=== PATIENT | male | born 1995 | race Caucasian/White ===

== ENCOUNTER 2016-05-12 18:38 | Emergency (ER) | payer OTHER ==
[2016-05-12 19:40] VITALS: BP 112/69
--- NOTE | 2016-05-12 20:36 | PROVIDER DOCUMENTATION ---
HPI-Male Problem <Aly Rebolledo - Last Filed: 05/12/16 21:39> - General Source: patient - History of Present Illness-Male Location of Complaint: reports: scrotal Radiation: reports: none Quality of Pain: reports: aching Severity in ED: reports: mild Onset/Duration: reports: last night Timing: reports: still present Associated Symptoms: reports: pain/swelling in testicle Similar Symptoms Previously?: No Recently seen or treated by another doctor?: No <Lashaun Amaya - Last Filed: 05/12/16 21:41> <Dulce Sutton - Last Filed: 05/12/16 21:47> - General Chief Complaint: Male Stated Complaint: SWOLLEN TESTICLE Time Seen by Provider: 05/12/16 19:09 Allergies/Adverse Reactions: Patient Allergies Allergy/AdvReac Type Severity Reaction Status Date / Time amoxicillin trihydrate * Allergy Unknown Verified 05/12/16 19:40 [From Augmentin] potassium clavulanate * Allergy Unknown Verified 05/12/16 19:40 [From Augmentin] - History of Present Illness-Male Nature of Presenting Problem: 21 year old M presents to the ED with a cc of swelling and pain to right testicle with an onset of last night around 2230. Pt denies trauma. Pt states that a similar thing happened 10 years ago to left and states that he had to take a lot of antibiotics. (Lashaun Amaya) Review of Systems - Adult - REVIEW OF SYSTEMS - ADULT Constitutional: denies: chills, fever Eyes: reports: no symptoms reported Ears, Nose, Mouth & Throat: reports: no symptoms reported Cardiovascular: denies: chest pain, palpitations Respiratory: denies: cough, shortness of breath Gastrointestinal: denies: abdominal pain, nausea, vomiting Genitourinary: denies: dysuria, discharge Musculoskeletal: denies: back pain, neck pain Integumentary: reports: no symptoms reported Neurological: reports: no symptoms reported Psychiatric: reports: no symptoms reported Endocrine: reports: no symptoms reported Hematologic/Lymphatic: reports: no symptoms reported Allergic/Immunologic: reports: no symptoms reported All Other Systems: Reviewed and Negative <Lashaun Amaya - Last Filed: 05/12/16 21:41> Past History - Adult - PAST MEDICAL HISTORY-ADULT Review of Records: reports: Nursing Assessment Review, Medications Reviewed Major Childhood Illnesses: reports: denies history Other Conditions: reports: denies history - PRIOR SURGERIES/PROCEDURES Surgical/Procedure History: reports: none - IMMUNIZATION STATUS Childhood Immunizations: See Nurse Assessment Flu Vaccine: See Nurse Assessment - SOCIAL HISTORY Smoking: cigarettes, greater than 1 pack/day Provider spent 3-5 mins advising pt. on dangers of tobacco.: Discussed manners to quit use, and f/u contacts for add'l counseling. Substance Use: none/never Alcohol Use Frequency: never <Lashaun Amaya - Last Filed: 05/12/16 21:41> Physical Exam-General - GENITOURINARY Male Genitalia: normal genitalia, no hernia, circumcised. negative: epididymal tenderness, herpes-like lesion, hernia mass, hydrocele, inguinal lymphadenopathy , scrotal swelling, urethral discharge, inguinal tenderness, testicular tenderness <Aly Rebolledo - Last Filed: 05/12/16 21:39> - PHYSICAL EXAM-ADULT Initial Vital Signs Reviewed: Yes - CONSTITUTIONAL General Appearance: appears well, alert, no apparent distress - RESPIRATORY Respiratory: chest non-tender, lungs clear, normal breath sounds - CARDIOVASCULAR Cardiovascular: normal peripheral pulses, regular rate, rhythm, no edema - GASTROINTESTINAL (ABDOMEN) Abdominal Exam: normal bowel sounds, non tender, soft - GENITOURINARY Male Genitalia: normal genitalia, no hernia. negative: epididymal tenderness, scrotal swelling, urethral discharge, inguinal tenderness, testicular tenderness - SKIN Integumentary: normal color, normal turgor, warm/dry - PSYCHIATRIC Psych/Mental Status: normal mood/affect, normal thought content, normal thought process, oriented x 3 <Lashaun Amaya - Last Filed: 05/12/16 21:41> Progress <Aly Rebolledo - Last Filed: 05/12/16 21:39> - ULTRASOUND (By Radiology) 1 US Study: Scrotum Impression: Abnormal (very small hydrocele on RT. unremarkable bilateral testicles. No torsion. No other discrete abnormalities.) <Lashaun Amaya - Last Filed: 05/12/16 21:41> <Dulce Sutton - Last Filed: 05/12/16 21:47> - PLAN OF CARE/RESULTS Progress/Plan/Lab Results: plan of care: imaging, medications Orders Category Date Time Status US SCROTUM [US] Stat Exams 05/12/16 19:09 Taken Ibuprofen [Motrin] Med 05/12/16 21:38 Discontinued 800 mg PO NOW ONE Vital Signs - 24 hr 05/12/16 19:35 Temperature 98.5 F Pulse Rate 95 H Respiratory 18 Rate Blood Pressure 112/69 O2 Sat by Pulse 99 Oximetry Pt given results and will be d/c home w/ rx to follow up with PCP. Pt verbally understood instructions. PT remained clinically stable throughout the course of the ED stay and will return if symptoms worsen. (Lashaun Amaya) Departure - Departure Time of Disposition Order: 21:39 Certified Medical Emergency: Emergent <Aly Rebolledo - Last Filed: 05/12/16 21:39> <Lashaun Amaya - Last Filed: 05/12/16 21:41> <Dulce Sutton - Last Filed: 05/12/16 21:47> - Departure DIAGNOSIS: Acute hydrocele Disposition: HOME 01 Condition: Good Prescriptions: Ibuprofen [Motrin] 800 mg PO Q8H PRN PRN #30 tablet PRN Reason: Pain Referrals: None,PCP [Primary Care Provider] - Sammy Suarez, DO [STAFF PHYSICIAN] - Forms: Return to School/Parent Work Instructions: Hydrocele, Pediatric, Ibuprofen tablets and capsules, Scrotal Swelling Attestation - Scribe Verification/Attestation Scribe:: Lashaun Amaya Acting as Scribe for:: Dulce Sutton Scribe documention review:: This chart was documented by a scribe and accurately reflects the service the provider performed and the decisions made by the provider. <Lashaun Amaya - Last Filed: 05/12/16 21:41> - Physician/ Mid-level Attestation Patient care was provided by Mid-level provider (INSURANCE MANAGER/PA):: Yes Mid-level provider:: Dulce Sutton Mid-level documentation review:: The Mid-level provider documentation, treatment plan and medical decision making was reviewed by the physician who agrees with all treatment and medical decision making by the MLP. <Dulce Sutton - Last Filed: 05/12/16 21:47> Physician Attestation - Physician Attestation I, the provider, attest to the following statement:: Dulce Sutton Physician documentation Attestation:: This documentation recorded by the scribe accurately reflects the service I personally performed and the decisions made by me. <Lashaun Amaya - Last Filed: 05/12/16 21:41>
[2016-05-12] MEDS ORDERED: MOTRIN PO ONE (21:38)
--- NOTE | 2016-05-13 09:11 | Diag Imaging Result Document ---
PROCEDURE NAME: US SCROTUM - 05/12/2016 SCROTAL ULTRASOUND: INDICATION: Right testicle is swollen and tender. FINDINGS: The testicles appear normal in size and echotexture. There is bilateral symmetrical intratesticular flow. There is no evidence for testicular torsion. The epididymides appear within normal limits. There is a trace hydrocele on the right. No skin thickening is identified. Preliminary interpretation was given by the on-call radiologist. IMPRESSION: 1. Trace right hydrocele. 2. No evidence for testicular torsion.
== END 2016-05-12 21:47 | disposition home or self-care (01) ==
LOC: P.ED 18:38
DX: N43.3 Hydrocele, unspecified (principal); N50.811 Right testicular pain; N50.89 Other specified disorders of the male genital organs; F17.210 Nicotine dependence, cigarettes, uncomplicated; Z71.6 Tobacco abuse counseling
CPT/HCPCS: 76870

== ENCOUNTER 2016-05-16 04:16 | Emergency (ER) ==
[2016-05-16 04:26] VITALS: BP 140/085
--- NOTE | 2016-05-16 04:43 | PROVIDER DOCUMENTATION ---
HPI-Male Problem - General Chief Complaint: Male Stated Complaint: MALE Time Seen by Provider: 05/16/16 04:28 Source: patient Allergies/Adverse Reactions: Patient Allergies Allergy/AdvReac Type Severity Reaction Status Date / Time amoxicillin trihydrate * Allergy Unknown Verified 05/12/16 19:40 [From Augmentin] potassium clavulanate * Allergy Unknown Verified 05/12/16 19:40 [From Augmentin] - History of Present Illness-Male Nature of Presenting Problem: pt is concerned that the swelling of his left scrotum is larger than when seen in the ED on 05/12/16 which an US showed a small left sided hydrocoele. HE has also noticed BRB when he defecates and gets the same on his TP. He admits to being very anxious due to family hx of cancer. No dysuria or frequency. No blood in the stools themselves. No abdominal pain. Review of Systems - Adult - REVIEW OF SYSTEMS - ADULT Constitutional: denies: chills, fever Eyes: denies: discharge Ears, Nose, Mouth & Throat: denies: ear pain, sinus problem, throat pain Cardiovascular: denies: chest pain Respiratory: denies: cough, shortness of breath Gastrointestinal: reports: see HPI. denies: abdominal pain, constipation, diarrhea, nausea Genitourinary: reports: other (blood in ejaculate). denies: dysuria, frequency , flank pain, hematuria Musculoskeletal: denies: back pain Integumentary: denies: rash Neurological: denies: headache/migraines, numbness, paresthesia All Other Systems: Reviewed and Negative Past History - Adult - PAST MEDICAL HISTORY-ADULT Review of Records: reports: Old Records Reviewed, Nursing Assessment Review, Medications Reviewed, Social history reviewed & non-contributory. Major Childhood Illnesses: reports: denies history Other Conditions: reports: denies history - PRIOR SURGERIES/PROCEDURES Surgical/Procedure History: reports: none - IMMUNIZATION STATUS Childhood Immunizations: See Nurse Assessment Flu Vaccine: See Nurse Assessment Physical Exam-General - PHYSICAL EXAM-ADULT Initial Vital Signs Reviewed: Yes - CONSTITUTIONAL General Appearance: appears well, alert, no apparent distress - EYES Eyes: pink conjunctivae. negative: scleral icterus - HEAD, EARS, NOSE, MOUTH & THROAT HENMT: normocephalic/atraumatic - GASTROINTESTINAL (ABDOMEN) Abdominal Exam: normal bowel sounds, non tender, soft, no organomegaly, no pulsatile mass - GENITOURINARY Male Genitalia: no hernia, circumcised, hydrocele (small minimally tender on left). negative: erythema, uncircumcised, epididymal tenderness, herpes-like lesion, hernia mass, inguinal lymphadenopathy, scrotal swelling, urethral discharge, inguinal tenderness, testicular tenderness - MUSCULOSKELETAL Back Exam: normal inspection, no CVA tenderness, no vertebral tenderness - SKIN Integumentary: normal color, normal turgor, warm/dry - NEUROLOGIC Neurologic: grossly normal, no motor/sensory deficits - PSYCHIATRIC Psych/Mental Status: normal mood/affect, normal thought content, normal thought process, oriented x 3 Progress - PLAN OF CARE/RESULTS Progress/Plan/Lab Results: Vital Signs Temp Pulse Resp BP Pulse Ox 05/16/16 04:20 97.8 F 86 18 140/085 100 amoxicillin trihydrate * [From Augmentin] Allergy (Verified 05/12/16 19:40) Unknown potassium clavulanate * [From Augmentin] Allergy (Verified 05/12/16 19:40) Unknown Ibuprofen [Motrin] 800 mg PO Q8H PRN PRN #30 tablet 05/12/16 Hydrocortisone Supp [Anusol-Hc Supp] 25 mg SC BID #14 supp 05/16/16 Departure - Departure Time of Disposition Order: 04:42 DIAGNOSIS: Hemorrhoids Qualifiers: Hemorrhoid type: unspecified Qualified Code(s): K64.9 - Unspecified hemorrhoids Disposition: HOME 01 Certified Medical Emergency: Emergent Condition: Good Additional Instructions: ED Follow Up Instructions: You have been treated by a care provider in the Emergency Department. These instructions are being provided to you so you can have an understanding of how to care for yourself upon discharge. Upon discharge from the Emergency Department, you are responsible for making arrangements for follow-up care by a physician of your choice. Take all prescribed medications as directed. Return to the Emergency Department immediately for any new or worsening symptoms. You may call the Physician Referral phone number at [phone] to obtain a list of Physicians who are taking new patients. ED Follow Up Instructions: You have been treated by a care provider in the Emergency Department. These instructions are being provided to you so you can have an understanding of how to care for yourself upon discharge. Upon discharge from the Emergency Department, you are responsible for making arrangements for follow-up care by a physician of your choice. Take all prescribed medications as directed. Return to the Emergency Department immediately for any new or worsening symptoms. You may call the Physician Referral phone number at [phone] to obtain a list of Physicians who are taking new patients. Prescriptions: Hydrocortisone Supp [Anusol-Hc Supp] 25 mg SC BID #14 supp Referrals: None,PCP [Primary Care Provider] - Beatrice Dinh MD [STAFF PHYSICIAN] - Forms: Return to School/Parent Work Instructions: Hemorrhoids, [id number], Scrotal Swelling
== END 2016-05-16 05:01 | disposition home or self-care (01) ==
LOC: P.ED 04:16
DX: K64.9 Unspecified hemorrhoids (principal); N50.89 Other specified disorders of the male genital organs; N43.3 Hydrocele, unspecified
CPT/HCPCS: 99282